=== PATIENT | male | born 1945 | race Caucasian/White ===

== ENCOUNTER 2018-10-15 07:24 | Observation (INO) | payer MEDICARE ==
[~2018-10-15] VITALS: Ht 185.4 cm; Wt 75.0 kg
[~2018-10-15 07:24] MED LIST: AMOXICILLIN500 MG PO; GABAPENTIN300 MG PO; LEVAQUIN750 MG PO; MEDDOSEPAK PO; OXYCODONE HCL10 MG PO; PERCOCET 10/31 COMBO PO; PERCOCET 5/325M1 TAB PO; PREDNISONE10 MG PO; PREDNISONE20 MG PO; PROAIR HFA108 MCG/AC IN; PROVENTIL HFA IN; ROBAXIN-750750 MG PO; VENTOLIN HFA IN; ZITHROMAX Z-PAK1 TAB PO; ZPAK PO
--- NOTE | 2018-10-15 07:24 | NUR ---
PT DIRECTLY TO ROOM 12, PT CONVERSATIONALLY DYSPNEIC.
--- NOTE | 2018-10-15 07:30 | NUR ---
AUDIBLE WHEEZES NOTED. PT REPORTS INCREASING SOB AFTER BEING DIAGNOSED WITH BRONCHITIS 3 DAYS PRIOR. SA02 92% ON ROOM AIR.
--- NOTE | 2018-10-15 07:55 | NUR ---
PT REPORTS FEELING MUCH BETTTER AFTER NEB TX. EXPIRATORY WHEEZES NOTED TO BILATERAL UPPER LOBES.
--- NOTE | 2018-10-15 08:04 | NUR ---
PT MEDICATED PER ORDERED AND RESTING COMFORTABLY IN NAD. RR 22 AT THIS TIME AND SA02 94% ON 2L NC. PT AWARE OF PENDING RESULTS AND WAIT TIME. CALL HICKS WITHIN REACH.
[2018-10-15 08:13] LABS: HEMATOCRIT 43.6 % (39.0-50.0); HEMOGLOBIN 14.6 g/dl (14.0-18.0); IMMATURE GRANULOCYTES 0.3 % (0.0-5.0); MEAN CELL VOLUME 95.6 fL CALC (80.0-100.0); MEAN CORPUSCULAR HGB CONC 33.5 g/L CALC (32.0-36.0); NEUT# 3.91 thou/uL (1.82-7.42); RED BLOOD COUNT 4.56 mill/uL (4.70-6.10); RED CELL DISTRI WIDTH 13.1 % (11.5-15.5)
[2018-10-15 08:17] LABS: ANION GAP 16 (6-22 (CALC)); BUN 13 mg/dL (8-23); BUN/CREATININE RATIO 16 (12-20 (CALC)); CARBON DIOXIDE 24 mmol/l (22-30); CHLORIDE 104 mmol/l (95-108); CREATININE 0.8 mg/dL (0.7-1.3); GFR > 60 ML/MIN (>=60 (CALC)); GFR FOR AFR.AMER. > 60 ML/MIN (>=60 (CALC)); POTASSIUM 4.2 mmol/l (3.5-5.1); SODIUM 140 mmol/l (137-146)
--- NOTE | 2018-10-15 09:00 | NUR ---
PT RESTING IN STRETCHER IN NAD. RR 20 SA02 96% ON 2L NC AT THIS TIME. PT AWARE OF BUSY ED AND WAIT TIME. CALL HICKS WITHIN REACH.
--- NOTE | 2018-10-15 09:45 | NUR ---
IV ANTIBIOTICS INFUSING WITH NO DIFFICUTLY. IV SITE FREE FROM REDNESS AND EDEMA. PT CONCERED THAT WE LOST BOTTLE OF OXYCODONE. PT WAS INFOMRED THAT HE ONLY GAVE STAFF THE BOTTLE OF ANTIBIOTICS. BOTTLE OF OXYCODONE WAS FOUND IN PATIENT'S SHIRT POCKET. PT AWARE OF PENDING ADMISSION.
[2018-10-15] MEDS ORDERED: Levaquin PO (10:09)
--- NOTE | 2018-10-15 10:19 | NUR ---
CALL PLACED TO MS, NURSE WILL CALL BACK FOR REPORT.
--- NOTE | 2018-10-15 10:26 | NUR ---
PT REPORT GIVEN TO MARY CASTELAN. NO ADMISSION ORDERS IN AT THIS TIME. LORENA ROBERTS NOTIFIED.
--- NOTE | 2018-10-15 10:50 | NUR ---
PT AWARE OF PLAN TO TRANSPORT TO FLOOR AND REQUESTED TO AMBULATED TO BATHROOM TO HAVE A BM. PT AMBULATED WITH A STEADY GAIT. UPON GETTING BACK INTO STRETCHER MINIMAL AUDIBLE WHEEZING NOTED, PT REPORTS MINIMAL SOB. AFTER SITTING UPRIGHT WITH [address] PT DENIES ANY SOB, BILATERAL LS MINIMAL EXPIRATORY WHEEZES.
--- NOTE | 2018-10-15 11:05 | NUR ---
Admission Note Report Given to: MARY CASTELAN Transported by: X Wheelchair Stretcher Transported with: X Nurse Transporter X Patent IV X O2 X Accounts Payable Professional PT TO ROOM 278 ON 2 L NC AND TELE MONITOR.
--- NOTE | 2018-10-15 11:05 | NUR ---
PT BELONGINS WELL OXYCODONE AND ABX PILL BOTTLES PLACED IN BELONGINGS BAG AND TAKEN TO ROOM 278 WITH PT. MARY CASTELAN AWARE OF MEDICATIONS IN BELONGING BAG. PT WAS TAKEN TO ROOM 278 IN STABLE CONDITION WITH MILD BILATERAL WHEEZING. RT PAGED FOR NEB TREATMENT AND WILL MEET AT BEDSIDE. CARE RELINQUISHED TO MARY. HERNANDEZ.
--- NOTE | 2018-10-15 11:11 | NUR ---
PT ARRIVED FROM ER VIA WC AT 1110, WITH AUDIBLE WHEEZING ON EXERTION. REQUESTING A BREATHING TREATMENT.
[2018-10-15 11:20] VITALS: BP 124/67
--- NOTE | 2018-10-15 12:20 | NUR ---
ASSESSMENT IS COMPLETED: IV SITE IS FREE FROM REDNESS OR EDEMA. HR IS REG,PULSES ARE STRONG X4, ABD IS SOFT WITH ACTIVE BS. BREATH SOUNDS ARE WHEEZING AND LABORED. BECOMES SOB WITH EXERTION. TELE MONITOR IN PLACE. CONTINUE TO OSBERVE AND MONITOR.
--- NOTE | 2018-10-15 13:30 | NUR ---
PT IS RESTING IN BED WITH EYES CLOSED. IV SITE IS FREE FROM REDNESS OR EDEMA.
--- NOTE | 2018-10-15 16:20 | NUR ---
PT IS RELAXING IN BED WITH NO DISTRESS NOTED. IV SITE IS FREE FROM REDNESS OR EDEMA.
[2018-10-15 17:11] VITALS: BP 115/68
--- NOTE | 2018-10-15 20:14 | NUR ---
Patient resting in bed. No complaints. Patient has some SOB and wheezing noted throughout lung goodwin. Patient on O2@2l/min. Patient tolerating well. No S&S of distress. Will continue to monitor patient progress.
[2018-10-15 20:27] VITALS: BP 124/68
[2018-10-15 23:50] VITALS: BP 117/63
--- NOTE | 2018-10-16 01:50 | NUR ---
Patient resting in bed. @2330 patient given 10mg roxicodone for pain. Patient tolerated well. No S&S of distress. No change in previous assessment. Will continue to monitor patient progress.
[2018-10-16 04:49] VITALS: BP 109/62
[2018-10-16 05:05] LABS: HEMOGLOBIN 12.9 g/dl (14.0-18.0); IMMATURE GRANULOCYTES 0.4 % (0.0-5.0); MEAN CELL VOLUME 94.5 fL CALC (80.0-100.0); MEAN CORPUSCULAR HGB 32.1 pG CALC (26.0-32.0); MEAN CORPUSCULAR HGB CONC 33.9 g/L CALC (32.0-36.0); NEUT# 6.2 thou/uL (1.82-7.42); RED BLOOD COUNT 4.02 mill/uL (4.70-6.10)
[2018-10-16 05:20] LABS: ANION GAP 11 (6-22 (CALC)); BUN 19 mg/dL (8-23); BUN/CREATININE RATIO 28 (12-20 (CALC)); CARBON DIOXIDE 23 mmol/l (22-30); CHLORIDE 111 mmol/l (95-108); CREATININE 0.7 mg/dL (0.7-1.3); GFR > 60 ML/MIN (>=60 (CALC)); GFR FOR AFR.AMER. > 60 ML/MIN (>=60 (CALC)); MAGNESIUM 2.2 mg/dL (1.6-2.3); POTASSIUM 3.9 mmol/l (3.5-5.1); SODIUM 141 mmol/l (137-146)
--- NOTE | 2018-10-16 06:36 | NUR ---
Patient resting in bed. No complaints. No S&S of distress. No change in previous assessment. Will continue to monitor patient progress.
[2018-10-16 07:40] VITALS: BP 114/65
--- NOTE | 2018-10-16 07:40 | NUR ---
ASSESSMENT IS COMPLETED: IV SITE IS FREE FROM REDNESS OR EDEMA. HR IS REG, PULSES ARE STRONG X4, ABD IS SOFT WITH ACTIVE BS. BREATH SOUNDS ARE CLEAR, BILATERALLY. TELE MONITOR IN PLACE. CONTINUE TO OSEBRVE AND MONITOR.
--- NOTE | 2018-10-16 07:45 | NUR ---
Preliminary lab results, gram positive cocci growing in 1 aerobic bottle, called to physician.
[2018-10-16 11:25] VITALS: BP 121/65
[2018-10-16] MEDS ORDERED: IPRATROPIU0.5 MG/3 M NEB (12:16)
[2018-10-16] MEDS ORDERED: PANTOPRAZOLE SO40 M1 PO (12:17)
[2018-10-16] MEDS ORDERED: MEDDOSEPAK PO (12:17)
--- NOTE | 2018-10-16 12:40 | NUR ---
PT IS RELAXING ABLE TO SPEAK TO SOMEONE AT HIS JOB. IV SITE IS FREE FROM REDNESS OR EDEMA.
--- NOTE | 2018-10-16 15:57 | NUR ---
IV SITE DISCONITNUED CATHETER INTACT. DISCHARGE INSTRUCTIONS GIVEN AND VERBALIZED UNDERSTANDING. ALL PAPERS GIVEN. CONITNUE TO OSBERVE AND MONITOR.
== END 2018-10-16 15:55 | disposition home or self-care (01) ==
LOC: ED 07:24 → ED-I 07:43 → ED 07:43 → ED-I 08:52 → ED 09:06 → MS2 09:07
PROVIDERS: Family Medicine; Nurse Practitioner Family; ADMIT Internal Medicine; ATTEND Internal Medicine
DX: J43.9 Emphysema, unspecified (principal); F17.210 Nicotine dependence, cigarettes, uncomplicated; G89.28 Other chronic postprocedural pain; M54.9 Dorsalgia, unspecified; Z99.81 Dependence on supplemental oxygen; Z79.891 Long term (current) use of opiate analgesic
CPT/HCPCS: J1650

== ENCOUNTER 2020-01-30 22:37 | Emergency (ER) | payer MEDICARE ==
[~2020-01-30] VITALS: Ht 185.4 cm; Wt 75.0 kg
[~2020-01-30 22:37] MED LIST changes: +IPRATROPIU0.5 MG/3 M NEB; +Levaquin PO; +PANTOPRAZOLE SO40 M1 PO
[2020-01-31 00:05] LABS: HEMOGLOBIN 10.2 g/dl (14.0-18.0); IMMATURE GRANULOCYTES 0.4 % (0.0-5.0); MEAN CELL VOLUME 95.2 fL CALC (80.0-100.0); MEAN CORPUSCULAR HGB 30.7 pG CALC (26.0-32.0); MEAN CORPUSCULAR HGB CONC 32.3 g/dL CAL (32.0-36.0); NEUT# 7.45 thou/uL (1.82-7.42); RED BLOOD COUNT 3.32 mill/uL (4.70-6.10); RED CELL DISTRI WIDTH 11.7 % (11.5-15.5)
[2020-01-31 00:06] LABS: HEMATOCRIT 31.6 % (39.0-50.0)
[2020-01-31 00:22] LABS: ALBUMIN 3.7 g/dL (3.2-5.0); ALKALINE PHOSPHATASE 65 u/l (38-126); BUN 18 mg/dL (8-23); BUN/CREATININE RATIO 23 (12-20 (CALC)); CHLORIDE 102 mmol/l (95-108); CREATININE 0.8 mg/dL (0.7-1.3); GFR > 60 ML/MIN (>=60 (CALC)); GFR FOR AFR.AMER. > 60 ML/MIN (>=60 (CALC)); POTASSIUM 4.6 mmol/l (3.5-5.1); SGOT/AST 24 u/l (19-48); SODIUM 135 mmol/l (137-146); TOTAL PROTEIN 7.5 g/dL (6.3-8.2)
[2020-01-31 00:29] LABS: URINE BILIRUBIN - DIPSTICK NEGATIVE (NEGATIVE); URINE BLOOD DIPSTICK NEGATIVE (NEGATIVE); URINE COLOR YELLOW; URINE GLUCOSE - DIPSTICK NEGATIVE (NEGATIVE); URINE KETONE TRACE mg/dL (NEGATIVE); URINE LEUK ESTERASE NEGATIVE (NEGATIVE); URINE NITRITE - DIPSTICK NEGATIVE (Negative); URINE PROTEIN - DIPSTICK NEGATIVE (NEG-TRACE)
[2020-01-31 00:30] LABS: MYOGLOBIN 30 ng/mL (0 - 121)
[2020-01-31 00:36] LABS: ANION GAP 8 (6-22 (CALC)); BILIRUBIN, TOTAL 0.5 mg/dL (0.0-1.4); CARBON DIOXIDE 30 mmol/l (22-30)
[2020-01-31] MEDS ORDERED: VENTOLIN HFA IN (01:25)
[2020-01-31 03:00] VITALS: BP 122/65
== END 2020-01-31 03:00 | disposition left against medical advice (07) ==
LOC: ED 22:37
PROVIDERS: Emergency Medicine
DX: J44.1 Chronic obstructive pulmonary disease with (acute) exacerbation (principal); R91.8 Other nonspecific abnormal finding of lung field; F17.210 Nicotine dependence, cigarettes, uncomplicated; Z20.828 Contact with and (suspected) exposure to other viral communicable diseases; Z91.19 Patient's noncompliance with other medical treatment and regimen; R06.02 Shortness of breath
CPT/HCPCS: Q9967

== ENCOUNTER 2020-02-01 14:02 | Emergency (ER) | payer MEDICARE ==
[~2020-02-01] VITALS: Ht 185.4 cm; Wt 84.1 kg
[2020-02-01 16:11] VITALS: BP 112/67
== END 2020-02-01 16:27 | disposition home or self-care (01) ==
LOC: ED 14:02
DX: R91.8 Other nonspecific abnormal finding of lung field (principal); J44.9 Chronic obstructive pulmonary disease, unspecified; F17.210 Nicotine dependence, cigarettes, uncomplicated

== ENCOUNTER 2020-04-04 12:49 | Observation (INO) | payer MEDICARE ==
[~2020-04-04] VITALS: Ht 185.4 cm; Wt 54.0 kg
[2020-04-04] VITALS (9 sets, daily range): BP systolic 94–118; BP diastolic 53–69
--- NOTE | 2020-04-04 13:01 | NUR ---
PATEINT TO ROOM VIA EMS AND PHYSICIAN NOTIFIED OF PATIENT STATUS
[2020-04-04 13:46] LABS: IMMATURE GRANULOCYTES 0.5 % (0.0-5.0); MEAN CORPUSCULAR HGB 26.3 pG CALC (26.0-32.0); MEAN CORPUSCULAR HGB CONC 29.7 g/dL CAL (32.0-36.0); NEUT# 7.12 thou/uL (1.82-7.42); RED BLOOD COUNT 2.59 mill/uL (4.70-6.10); RED CELL DISTRI WIDTH 17.1 % (11.5-15.5)
[2020-04-04 13:53] LABS: INTERNATIONAL NORMALIZED RATIO 1.3 RATIO (0.7-1.3); PROTHROMBIN TIME 12.6 SECONDS (9.0-12.5)
[2020-04-04 13:54] LABS: ALBUMIN 2.6 g/dL (3.2-5.0); ALKALINE PHOSPHATASE 87 u/l (38-126); ANION GAP 9 (6-22 (CALC)); BILIRUBIN, TOTAL 0.5 mg/dL (0.0-1.4); BUN 12 mg/dL (8-23); BUN/CREATININE RATIO 24 (12-20 (CALC)); CARBON DIOXIDE 24 mmol/l (22-30); CHLORIDE 102 mmol/l (95-108); CREATININE 0.5 mg/dL (0.7-1.3); GFR > 60 ML/MIN (>=60 (CALC)); GFR FOR AFR.AMER. > 60 ML/MIN (>=60 (CALC)); SGOT/AST 21 u/l (19-48); SODIUM 132 mmol/l (137-146); TOTAL PROTEIN 6.4 g/dL (6.3-8.2)
[2020-04-04 13:59] LABS: HEMATOCRIT 22.9 % (39.0-50.0); HEMOGLOBIN 6.8 g/dl (14.0-18.0); MEAN CELL VOLUME 88.4 fL CALC (80.0-100.0)
--- NOTE | 2020-04-04 14:00 | NUR ---
PT CALLS NURSE ASKING WHY HE IS HERE HE DOESN'T NEED TO BE HERE AND HE NEEDS HIS OXYCODONE AND HE IS FEELING A BIT SOB. EDUCATED REGARDING MODE OF ARRIVAL AND COMPLAINT, AND O2 APPLIED AT 2L VIA NC.
--- NOTE | 2020-04-04 15:00 | NUR ---
PT AWARE OF PLANNED ADMISSION, AGREEABLE AT THIS TIME AND AWARE OF NEED FOR BLOOD TRANSFUSION, CALL HICKS WITHIN REACH
--- NOTE | 2020-04-04 16:00 | NUR ---
PT RESTING NO NEW COMPLAINTS, CONTINUES TO MUTTER THAT HE DOESN;T WANT TO BE HERE AND THAT NURSES BUTTED INAND RUINED EVERYTHING, ETC, ALSO COMPLAINS OF BEING HUNGRY NOTIFIED.
--- NOTE | 2020-04-04 17:15 | NUR ---
PT RESTING TOLERATED AN ENSURE VANILLA 100% ALSO ASKING ABOUT PAIN MEDICATION MD ORDERED WILL MEDICATE ACCORDINGLY.
--- NOTE | 2020-04-04 18:20 | NUR ---
PT MEDICTAED EARLIER RESTING WITH EYES CLOSED, CALL HICKS WITHIN REACH.-
--- NOTE | 2020-04-04 19:32 | NUR ---
PATIENT EDUCATED ON TRANSFUSION REACTION SYSMPTOMS, EDUCATED TO NOTIFY NURSE OF ANY SYMPTOMS OR QUESTIONS.
--- NOTE | 2020-04-04 19:35 | NUR ---
BLOOD TRANSFUSION UNIT 1 OF 2 STARTED, PATIENT AWAKE AND ALERT, NO C/O PAIN OR DISCOMFORT, NO S/S OF DISTRESS NOTED, RESPIRATIONS EVEN AND UNLABORED, AWAITING INPATIENT BED ASSIGNMENT.
--- NOTE | 2020-04-04 20:34 | NUR ---
REPORT CALLED TO TOREY ON MED SURG
--- NOTE | 2020-04-04 20:46 | NUR ---
RESTING QUETLY WITH EYES CLOSED, NO C/O OF COMPLICATIONS WITH BLOOD TRANSFUSION.
--- NOTE | 2020-04-04 21:00 | NUR ---
RESTING QUIETLY, AWAITING TRANSFER TO INPATIENT TREATMENT ROOM.
--- NOTE | 2020-04-04 21:10 | NUR ---
PT ARRIVED TO [facility] [place] [facility] UNIT. PT APPEARS IN STABLE CONDITION AND SELF AMBULATED W/STANDBY ASSISTANCE FROM THE STRETCHER TO THE BED. V/S OBTAINED, ATTEMPTS TO ASSESS AND PLACE WHARF HAND ON PT ARE MADE AT THIS TIME. PT STATES, "I SHOULD NOT BE HERE, THIS IS ALL THAT NURSES FAULT, I WAS JUST FINE." I ASKED PT'S PERMISSION TO PLACE HEART MONITOR ON PER PHSYCIANS ORDERS, HE REPLIES, "WHY DO I NEED THAT, REDICULOUS." I ASKED PT IF HE DID NOT WANT ME TO PLACE MONITOR, HE REPLIED, "I DON'T CARE." WHARF HAND PLACED WITHOUT ANY ISSUE. REDNESS OBSERVED TO PT'S COCCYX, SHORTS KEPT ON PER PT REQUEST, URINAL IS PLACED AT BEDSIDE.
--- NOTE | 2020-04-04 22:36 | NUR ---
1ST UNIT OF PRBC TRANSFUSION COMPLETED AT THIS TIME. V/S ASSESSED, NO S/O DISTRESS OR NEGATIVE REACTION. PT TURNED IV PUMP OFF WHILE I WAS OUT OF THE ROOM AFTER THE BLOOD TRANSFUSION HAD COMPLETED AND NS WAS RUNNING. I EXPLAINED TO THE PT THAT HE HAD ANOTHER UNIT TO BE TRANSFUSED AND WAS THIS OKAY, HE VERBALIZED "YES", CONSENT HAS PREVIOUSLY BEEN SIGNED AND IS IN THE CHART FOR 2 UN OF PRBC. I EXPLAINED TO HIM THAT I NEED THE IVF TO RUN WHILE I GO OBTAIN THE 2ND UNIT. PT DID NOT RESPOND. IVF LEFT RUNNING, SITE APPEARS HEALTHY. V/S ARE STABLE.
--- NOTE | 2020-04-04 23:05 | NUR ---
2ND UNIT OF PRBC STARTED AT THIS TIME. PT V/S ARE STABLE. WILL STAY WITH PT AND REASSESS FOR THE FIRST 15MINUTES. PT EYES ARE CLOSED AND LIGHTS TURNED DOWN TO LOW FOR PT COMFORT ONCE TRANSFUSION STARTED.
[2020-04-05 00:02] VITALS: BP 100/58
--- NOTE | 2020-04-05 00:03 | NUR ---
V/S ASSESSED, PT TOLERATING PRBC TRANSFUSION WELL AT THIS TIME. EYES REMAIN CLOSED, PT LIFTED HIS ARM, DENIES NEEDS. CALL LIGHT AT SIDE AND PT ENCOURAGED TO CALL NEEDS ARISE.
[2020-04-05 01:00] VITALS: BP 99/45
--- NOTE | 2020-04-05 01:01 | NUR ---
BLOOD TRANSFUSION COMPLETED 2ND UNIT AT THIS TIME. PT APPEARS TO HAVE TOLERATED TRANSFUSION WELL. NO S/O DISTRESS. PT EYES CLOSED, BUT RESPONDING TO VERBAL QUES. V/S ASSESSED AT THIS TIME. CALL LIGHT AT SIDE AND PT ENCOURAGED TO CALL NEEDS ARISE.
--- NOTE | 2020-04-05 04:18 | NUR ---
IVF REPLENISHED AT THIS TIME. V/S ASSESSED. PT DENIES ANY OTHER NEEDS. REPORTS HAVING BEEN AMBULATING TO RESTROOM TO URINATE. PT HAS BEEN INSTRUCTED TO CALL FOR STANDBY ASSISTANCE.
[2020-04-05 04:20] VITALS: BP 100/56
[2020-04-05 05:32] LABS: IMMATURE GRANULOCYTES 0.5 % (0.0-5.0); MEAN CORPUSCULAR HGB 27.1 pG CALC (26.0-32.0); MEAN CORPUSCULAR HGB CONC 30.8 g/dL CAL (32.0-36.0); NEUT# 7.4 thou/uL (1.82-7.42); RED BLOOD COUNT 3.43 mill/uL (4.70-6.10)
[2020-04-05 05:38] LABS: HEMATOCRIT 30.2 % (39.0-50.0); HEMOGLOBIN 9.3 g/dl (14.0-18.0)
[2020-04-05 05:52] LABS: ALBUMIN 2.2 g/dL (3.2-5.0); ALKALINE PHOSPHATASE 86 u/l (38-126); ANION GAP 8 (6-22 (CALC)); BUN 11 mg/dL (8-23); BUN/CREATININE RATIO 26 (12-20 (CALC)); CARBON DIOXIDE 26 mmol/l (22-30); CHLORIDE 104 mmol/l (95-108); CREATININE 0.4 mg/dL (0.7-1.3); GFR > 60 ML/MIN (>=60 (CALC)); GFR FOR AFR.AMER. > 60 ML/MIN (>=60 (CALC)); MAGNESIUM 2.1 mg/dL (1.6-2.3); POTASSIUM 4.1 mmol/l (3.5-5.1); SGOT/AST 23 u/l (19-48); SODIUM 133 mmol/l (137-146); TOTAL PROTEIN 5.5 g/dL (6.3-8.2)
--- NOTE | 2020-04-05 07:29 | NUR ---
PT note Patient is screened for PT interventionand may benefit from funcitonal assessment by PT as well as OT if medical agrees
[2020-04-05 08:38] VITALS: BP 95/49
--- NOTE | 2020-04-05 08:38 | NUR ---
PT LAYING IN BED. A&O X3. NO DISTRESS NOTED. PT STATES THAT HE WISHES TO GO HOME, THAT HE DOES NOT KNOW WHY HE IS HERE OR WHY THEY BROUGHT HIM HERE. WHEN ASKED ABOUT HOME HEALTH AGENCY AND WHY HE WAS REC HOME HEALTH HE STATED "I DON'T KNOW". PT MAKING MINIMAL EYE CONTACT BUT PLESANTLY COOPERATIVE. ASSESSMENT CMPLETED. DISCUSSED POC. CALL LIGHT WITHIN REACH. CONTINUE TO MONITOR.
[2020-04-05 11:24] VITALS: BP 103/60
--- NOTE | 2020-04-05 11:50 | NUR ---
Discharge instructions given. Patient verbalizes understanding of same. Discharged in stable condition via wheelchair to home with Home Health, pt instructed to call home health agency when he gets home, pt did not recall the exact name of agency and was not willing to wait until orders were sent or right agency was found . Pt eager to get out and go home, neda Rouse called. Pt instructed to return to the hospital if symptoms worsen or new onset of sob, CP occur. Pt accompanied by Glenda PATEL. All belongings sent with pt.
== END 2020-04-05 11:50 | disposition home health service (06) ==
LOC: ED 12:49 → ED-I 15:02 → ED 15:17 → MS2 15:18
PROVIDERS: Nurse Practitioner; Student in an Organized Health Care Education/Training Program; ADMIT Internal Medicine; ATTEND Internal Medicine
PROC: 30233N1 Transfusion of Nonautologous Red Blood Cells into Peripheral Vein, Percutaneous Approach (ICD-10-PCS; principal; 2020-04-04)
PROC: 30233N1 Transfusion of Nonautologous Red Blood Cells into Peripheral Vein, Percutaneous Approach (ICD-10-PCS; 2020-04-04)
DX: D64.9 Anemia, unspecified (principal); C34.12 Malignant neoplasm of upper lobe, left bronchus or lung; J44.9 Chronic obstructive pulmonary disease, unspecified; F17.210 Nicotine dependence, cigarettes, uncomplicated; R76.8 Other specified abnormal immunological findings in serum; Z20.828 Contact with and (suspected) exposure to other viral communicable diseases
CPT/HCPCS: P9016

== ENCOUNTER 2020-05-07 09:07 | Emergency (ER) | payer MEDICARE ==
[~2020-05-07] VITALS: Ht 185.4 cm; Wt 52.6 kg
[2020-05-07 09:49] LABS: HEMATOCRIT 28.1 % (39.0-50.0); HEMOGLOBIN 8.6 g/dl (14.0-18.0); IMMATURE GRANULOCYTES 0.7 % (0.0-5.0); MEAN CELL VOLUME 89.5 fL CALC (80.0-100.0); MEAN CORPUSCULAR HGB 27.4 pG CALC (26.0-32.0); MEAN CORPUSCULAR HGB CONC 30.6 g/dL CAL (32.0-36.0); NEUT# 3.33 thou/uL (1.82-7.42); RED BLOOD COUNT 3.14 mill/uL (4.70-6.10); RED CELL DISTRI WIDTH 19.1 % (11.5-15.5)
[2020-05-07 10:02] LABS: ALKALINE PHOSPHATASE 80 u/l (38-126); BILIRUBIN, TOTAL 0.6 mg/dL (0.0-1.4); BUN 11 mg/dL (8-23); BUN/CREATININE RATIO 23 (12-20 (CALC)); CARBON DIOXIDE 28 mmol/l (22-30); CHLORIDE 107 mmol/l (95-108); CREATININE 0.5 mg/dL (0.7-1.3); GFR > 60 ML/MIN (>=60 (CALC)); GFR FOR AFR.AMER. > 60 ML/MIN (>=60 (CALC)); POTASSIUM 3.7 mmol/l (3.5-5.1); SGOT/AST 16 u/l (19-48); TOTAL PROTEIN 6.3 g/dL (6.3-8.2)
[2020-05-07 10:03] LABS: ANION GAP 9 (6-22 (CALC)); SODIUM 140 mmol/l (137-146)
[2020-05-07] MEDS ORDERED: PREDNISONE50 MG PO (11:19)
[2020-05-07] MEDS ORDERED: LEVAQUIN750 M1 PO (11:19)
[2020-05-07] MEDS ORDERED: PROAIR HFA108 MCG/AC PO (11:19)
[2020-05-07 12:18] VITALS: BP 137/68
== END 2020-05-07 12:29 | disposition left against medical advice (07) ==
LOC: ED 09:07
PROVIDERS: Family Medicine
DX: J44.1 Chronic obstructive pulmonary disease with (acute) exacerbation (principal); C34.92 Malignant neoplasm of unspecified part of left bronchus or lung; F17.200 Nicotine dependence, unspecified, uncomplicated; Z79.899 Other long term (current) drug therapy; Z91.19 Patient's noncompliance with other medical treatment and regimen; Z20.828 Contact with and (suspected) exposure to other viral communicable diseases

== ENCOUNTER 2020-06-15 15:08 | Emergency (ER) | payer MEDICARE ==
[~2020-06-15] VITALS: Ht 185.4 cm; Wt 51.8 kg
[~2020-06-15 15:08] MED LIST changes: +LEVAQUIN750 M1 PO; +PREDNISONE50 MG PO; +PROAIR HFA108 MCG/AC PO
[2020-06-15 17:54] VITALS: BP 115/66
== END 2020-06-15 18:05 | disposition home or self-care (01) ==
LOC: ED 15:08
DX: M54.42 Lumbago with sciatica, left side (principal); J44.9 Chronic obstructive pulmonary disease, unspecified; I71.4 Abdominal aortic aneurysm, without rupture; F17.210 Nicotine dependence, cigarettes, uncomplicated; Z85.118 Personal history of other malignant neoplasm of bronchus and lung

== ENCOUNTER 2020-06-27 10:17 | Inpatient (IN) | payer MEDICARE ==
[2020-06-27] VITALS (7 sets, daily range): BP systolic 80–104; BP diastolic 43–58
[~2020-06-27] VITALS: Ht 185.4 cm; Wt 52.0 kg
--- NOTE | 2020-06-27 10:18 | NUR ---
PT TO ROOM VIA EMS STRETCHER FOR TRAIGE.
--- NOTE | 2020-06-27 10:51 | NUR ---
RPaty AT BEDSIDE FOR VAPO THERM PLACEMENT ON PT LAB EM ROUTE FOR SECOND BC
[2020-06-27 10:55] LABS: HEMOGLOBIN 7.8 g/dl (14.0-18.0); NEUT# 18.11 thou/uL (1.82-7.42); RED BLOOD COUNT 2.89 mill/uL (4.70-6.10); RED CELL DISTRI WIDTH 18.1 % (11.5-15.5)
[2020-06-27 11:18] LABS: ALKALINE PHOSPHATASE 80 u/l (38-126); ANION GAP 10 (6-22 (CALC)); BUN 19 mg/dL (8-23); BUN/CREATININE RATIO 34 (12-20 (CALC)); CARBON DIOXIDE 27 mmol/l (22-30); CHLORIDE 103 mmol/l (95-108); CREATININE 0.6 mg/dL (0.7-1.3); GFR > 60 ML/MIN (>=60 (CALC)); GFR FOR AFR.AMER. > 60 ML/MIN (>=60 (CALC)); POTASSIUM 3.3 mmol/l (3.5-5.1); SGOT/AST 19 u/l (19-48); SODIUM 137 mmol/l (137-146)
--- NOTE | 2020-06-27 11:18 | NUR ---
MEDICATED ORDERED FOR PAIN AND ABT STARTED SINCE BC COMPLETE, VISITOR AT BEDSIDE WILL CONTINNUE TO MONITOR.
[2020-06-27 11:19] LABS: ACT PARTIAL THROMBO TIME 26.7 SECONDS (20.0-32.5); INTERNATIONAL NORMALIZED RATIO 1.2 RATIO (0.7-1.3)
[2020-06-27 11:21] LABS: ALBUMIN 2.2 g/dL (3.2-5.0); BILIRUBIN, TOTAL 1.3 mg/dL (0.0-1.4); TOTAL PROTEIN 4.7 g/dL (6.3-8.2)
--- NOTE | 2020-06-27 12:15 | NUR ---
PT TOLERATING VAPO THERM WITH OUT INCIDENT, CALL KURT MORSE REACH AWARE OF PLANNED CT.
--- NOTE | 2020-06-27 13:10 | NUR ---
PT AWARE OF PENDDING CT SCAN, OFFERS NO MEW COMPLAINTS.
--- NOTE | 2020-06-27 14:06 | NUR ---
PT IN RADIOLOGY WITH NURSE APARICIO
--- NOTE | 2020-06-27 14:50 | NUR ---
sbar printed to floor
--- NOTE | 2020-06-27 15:43 | NUR ---
PT AWARE OF PLANNED ADMISSION, AND NEED FOOR URINE
--- NOTE | 2020-06-27 16:15 | NUR ---
S: AMIE CROWELL is a 75 M who presents with COPD exacerbation/pneumonia. He has a history of arthritis, COPD, chicken pox/herpes, lung disease, bronchitis. All medications in patient's chart were reviewed. O: VS: BP 88/52 mmHg, P 84 bpm, RR 26 breaths/min ,T 97.6 F W 52 kg, HT 73 in, Scr= 0.6 mg/dL, CrCl= 46.9 ml/min A: Blood cultures are pending. P: Patient is on Zosyn 3.375 g IV Q6H. Vancomycin ordered for pharmacy to dose. Start Vancomycin 750 mg IV Q24H on 06/28/20 @ 0900. Vancomycin trough is drawn before the 4th dose on 06/30/20 @ 0830. Vancomycin goal trough is between 15-20 mcg/ml. Pharmacy will follow and or advise on antibiotics use as needed.
--- NOTE | 2020-06-27 16:40 | NUR ---
REPORT CALLED TO GAGE PATEL ON ICU
--- NOTE | 2020-06-27 16:50 | NUR ---
PT TO ICU BED 6 VIA STRETCHER. PT TRANSFERRED TO BED A MAX ASSIST. ADMISSION ASSESSMENT COMPLETED AT THIS TIME. HISTORY LIMITED DUE TO PATIENT NOT WANTING TO BE BOTHERED AT THIS TIME. Fausto DANIEL APRN AT BEDSIDE TRIED WELL FOR HISTORY PT DOES NOT WANT TO BE BOTHERED. RT AT BEDSIDE TO PLACE PT ON VAPOTHERM. PT ON 30L AT 80 FIO2. PT ORIENTED TO ROOM, UNIT, AND CALL [facility]. PT VERBALIZED UNDERSTANDING. CALL LIGHT IN REACH. WILL CONTINYUE TO [facility].
--- NOTE | 2020-06-27 16:50 | NUR ---
PT TRASNPORTED TO ICU VIA STRETCHER ALL BELONGINGS SENT WITH PATIENT, RECIEVING NURSE AT BEDSIDE ON ARRIVAL
--- NOTE | 2020-06-27 18:21 | NUR ---
PT RESTING IN BED AWAKE. WATCHING TV. PT HAD REQUESTED PAIN MEDICATION. MEDICATION PROVIDED PER AUG. CALL LIGHT IN REACH. [place] [facility]
--- NOTE | 2020-06-27 20:00 | NUR ---
awakens easily. dismissive to this rewriter. pt is VERY thin & emaciated. has generalized weakness. pt is VERY ill appearing. o2 cont 30 l/m 80% per vapotherm. coarse breath sounds bilat. card placer shows sinus rhythm hr 95. #20 lac ns infusing @ 75cchr. no po intake & hnv @ present. fall precautions cont.
--- NOTE | 2020-06-27 20:15 | NUR ---
reggie kline(friend) called this headline writer. permission rec'd from pt to give code number & any info to him. spoke to reggie @ length about pts condition. all questions answered.
[2020-06-27 21:15] LABS: URINE BLOOD DIPSTICK NEGATIVE (NEGATIVE); URINE CLARITY CLEAR; URINE COLOR YELLOW; URINE GLUCOSE - DIPSTICK NEGATIVE (NEGATIVE); URINE KETONE NEGATIVE (NEGATIVE); URINE LEUK ESTERASE NEGATIVE (Negative); URINE NITRITE - DIPSTICK NEGATIVE (Negative); URINE PROTEIN - DIPSTICK NEGATIVE (NEG-TRACE)
[2020-06-27 21:25] LABS: URINE BILIRUBIN - DIPSTICK NEGATIVE (NEGATIVE)
--- NOTE | 2020-06-27 22:00 | NUR ---
alfonzo way(daughter) called this content writer. permission rec'd from pt to give code number to her. spoke @ length about pts condition. daughter requested social service consult for assistance @ home after discharge.
[2020-06-28] VITALS (19 sets, daily range): BP systolic 76–158; BP diastolic 52–92
--- NOTE | 2020-06-28 00:01 | NUR ---
o2 has been off frequently & has been replaced. pulse ox drops to 80% quickly. pulse ox increases to 94-96%.
--- NOTE | 2020-06-28 02:00 | NUR ---
resting quietly. o2 cont per vapotherm. library monitor shows sinus rhythm pacs.
--- NOTE | 2020-06-28 04:25 | NUR ---
pulse ox 73%. o2 found on floor. pt yelling out "i'm dying." o2 replaced then increased to 95%. instructed pt about importance of o2 & consequences of not wearing it. pt verbalized understanding. medicated with dilaudid as requested. requested florian tx. rt notified. lab here. blood drawn.
[2020-06-28 05:03] LABS: HEMATOCRIT 22.9 % (39.0-50.0); MEAN CELL VOLUME 90.5 fL CALC (80.0-100.0); MEAN CORPUSCULAR HGB 27.7 pG CALC (26.0-32.0); MEAN CORPUSCULAR HGB CONC 30.6 g/dL CAL (32.0-36.0); RED BLOOD COUNT 2.53 mill/uL (4.70-6.10); RED CELL DISTRI WIDTH 18.1 % (11.5-15.5)
[2020-06-28 05:17] LABS: ANION GAP 8 (6-22 (CALC)); BUN 18 mg/dL (8-23); BUN/CREATININE RATIO 35 (12-20 (CALC)); CALCULATED LDLCHOLESTEROL 48 mg/dL (62-129 (CALC)); CARBON DIOXIDE 24 mmol/l (22-30); CHLORIDE 110 mmol/l (95-108); CREATININE 0.5 mg/dL (0.7-1.3); GFR > 60 ML/MIN (>=60 (CALC)); GFR FOR AFR.AMER. > 60 ML/MIN (>=60 (CALC)); HDL CHOLESTEROL 15 mg/dL (>=40); MAGNESIUM 2.2 mg/dL (1.6-2.3); POTASSIUM 3.1 mmol/l (3.5-5.1); SODIUM 139 mmol/l (137-146); TOTAL TRIGLYCERIDES 100 mg/dl (30-149); VLDL CHOLESTROL 20 mg/dl (0-38 (CALC))
[2020-06-28 05:20] LABS: CHOLESTEROL HDL RATIO 5.5 (<4.4 (CALC)); TOTAL CHOLESTEROL 83 mg/dl (0-199)
--- NOTE | 2020-06-28 05:48 | NUR ---
eyes closed. nad. o2 cont. offal roller shows sinus rhythm pacs hr 70
--- NOTE | 2020-06-28 06:45 | NUR ---
REPORT RECEIVED FROM THERESE HERNANDEZ. CARE ASSUMED.
--- NOTE | 2020-06-28 07:00 | NUR ---
PT RESTING IN BED WITH EYES CLOSED. PT IS ALERT AND ORIENTED X3. SHIFT ASSESSMENT COMPLETED AT THIS TIME. IV PATENT X1. CALL LIGHT IN REACH. WILL CONTINUE TO MONITOR.
--- NOTE | 2020-06-28 07:38 | NUR ---
Patient is screened for PT intervention and he may benefit from consult if medical agrees
--- NOTE | 2020-06-28 08:15 | NUR ---
DR MARINELLI AT BEDSIDE AT THIS TIME.
--- NOTE | 2020-06-28 08:45 | NUR ---
T SIGNED DNR FORM.
--- NOTE | 2020-06-28 08:50 | NUR ---
LAB AT BEDSIDE TO TYPE AND SCREEN.
--- NOTE | 2020-06-28 09:04 | NUR ---
TRIED TO PLACE PULMONOLOGY CONSULTS. TRSQD STATES NO AVAILABLE TIME SLOTS FOR DR GLYNN.
--- NOTE | 2020-06-28 09:10 | NUR ---
NEW #22G STARTED TO RAC ON 2ND ATTEMPT BY THIS WRITTER, PT TOLERATED WELL.
--- NOTE | 2020-06-28 09:33 | NUR ---
RT AT BEDSIDE FOR NEB TREATMENT. RT INCREASED VAPOTHERM TO 85% AT THIS TIME DUE TO DECREASED O2 SATS. CONSENT FOR BLOOD OBTAINED AT THIS TIME. CALL LIGHT IN REACH. WILL CONTINUE TO [facility]
--- NOTE | 2020-06-28 09:33 | NUR ---
FIO2 INCREASED TO 85% ON VAPOTHERM
--- NOTE | 2020-06-28 10:02 | NUR ---
1 UNIT PRBCS STARTED AT THIS TIME
--- NOTE | 2020-06-28 10:18 | NUR ---
PT RESTING IN BED WITH EYES CLOSED. RESP ARE EVEN AND UNLABORED. NO DISTRESS NOTED. CALL LIGHT IN REACH. WILL CONTINUE TO MONTIOR.
--- NOTE | 2020-06-28 11:10 | NUR ---
consult completed with dr harp via [facility]
--- NOTE | 2020-06-28 12:00 | NUR ---
PT RESTING IN BED WITH EYES CLOSED. RESP ARE EVEN AND UNLABORED. NO DISTRESS NOTED. CALL LIGHT IN JACQUELINE. WILL CONTINUE TO MONTIOR
--- NOTE | 2020-06-28 13:02 | NUR ---
PRBCS FINISHED AT THIS TIME.
--- NOTE | 2020-06-28 13:49 | NUR ---
PT MOVED TO AIR MATTRESS BED. PT TOLERATED TRANSFER WELL. RT NOW AT BEDSIDE FOR NEB TREATMENT. CALL LIGHT IN REACH. WILL CONTINUE TO MONITOR.
--- NOTE | 2020-06-28 15:39 | NUR ---
PT RESTING IN BED WITH EYES CLOSED. PT VOICES NO COMPLAINTS AT THIS TIME. RESP ARE EVEN AND UNLABORED ONB VAPOTHERM. [facility]. WILL CONTINIUE TO [facility]
[2020-06-28 16:47] LABS: HEMATOCRIT 25.5 % (39.0-50.0); HEMOGLOBIN 8.1 g/dl (14.0-18.0)
--- NOTE | 2020-06-28 18:12 | NUR ---
PT RESTING IN BED WITH EYES CLOSED. PT REFUSED TO EAT DINNER. RESP ARE EVEN AND UNLABORED AT THIS TIME. PT DOES RANDOMLY PULL OFF O2. CALL LIGHT IN REACH. WILL CONTINUE TO MONITOR.
--- NOTE | 2020-06-28 19:30 | NUR ---
drowsy when awakened. appears weaker tonight. o2 cont per 30 l/m 85% per vapotherm. nad. adjunct physics instructor shows sinus rhythm hr 82. #20 lac saline lock. #22 rac ns infusing @ 75cchr. refused po fluids. hnv @ present. fall precautions cont.
--- NOTE | 2020-06-28 21:45 | NUR ---
threat monitoring analyst shows svt hr 160-180. bp 159/92. rt here. ekg obtained. dr alexandra notified. orders rec'd.
--- NOTE | 2020-06-28 23:15 | NUR ---
heel builder machine shows svt hr 160-180. bp 124/82. dr alexandra notified. orders rec'd.
[2020-06-29] VITALS (10 sets, daily range): BP systolic 82–138; BP diastolic 46–74
--- NOTE | 2020-06-29 00:01 | NUR ---
dr alexandra called this typewriter operator automatic. updated on pts condition. orders rec'd.
--- NOTE | 2020-06-29 01:00 | NUR ---
monitor tech shows svt hr 165. bp 105/71. amiodarone given as ordered.
--- NOTE | 2020-06-29 02:00 | NUR ---
eyes closed. nad. patient monitor shows a fib pvcs hr 150. o2 cont.
--- NOTE | 2020-06-29 04:00 | NUR ---
resting quietly. nad. cardic monitor shows a fib pvcs hr 150.
--- NOTE | 2020-06-29 05:30 | NUR ---
LAB HERE. BLOOD DRAWN.
[2020-06-29 06:20] LABS: HEMOGLOBIN 9.7 g/dl (14.0-18.0); IMMATURE GRANULOCYTES 0.5 % (0.0-5.0); MEAN CELL VOLUME 90.2 fL CALC (80.0-100.0); MEAN CORPUSCULAR HGB 27.1 pG CALC (26.0-32.0); NEUT# 16.57 thou/uL (1.82-7.42); RED BLOOD COUNT 3.58 mill/uL (4.70-6.10); RED CELL DISTRI WIDTH 18.5 % (11.5-15.5)
[2020-06-29 06:24] LABS: ALBUMIN 2.2 g/dL (3.2-5.0); ALKALINE PHOSPHATASE 82 u/l (38-126); BILIRUBIN, TOTAL 1.7 mg/dL (0.0-1.4); BUN 14 mg/dL (8-23); BUN/CREATININE RATIO 27 (12-20 (CALC)); CARBON DIOXIDE 22 mmol/l (22-30); CHLORIDE 113 mmol/l (95-108); CREATININE 0.5 mg/dL (0.7-1.3); GFR > 60 ML/MIN (>=60 (CALC)); GFR FOR AFR.AMER. > 60 ML/MIN (>=60 (CALC)); SGOT/AST 15 u/l (19-48); SODIUM 144 mmol/l (137-146); TOTAL PROTEIN 4.8 g/dL (6.3-8.2)
[2020-06-29 06:26] LABS: HEMATOCRIT 32.3 % (39.0-50.0)
[2020-06-29 06:30] LABS: ANION GAP 13 (6-22 (CALC)); POTASSIUM 3.9 mmol/l (3.5-5.1)
--- NOTE | 2020-06-29 06:40 | NUR ---
dr alexandra notified of a fib 140-160. bp 123/74
--- NOTE | 2020-06-29 08:24 | NUR ---
PT ALERT/ORIENTED X3, LAYING ON RIGHT SIDE, REQUESTING PAIN MEDICATION FOR HIS SCIATIC NERVE COMPLAINT, DENIES ANY CHEST PAIN, DENIES ANY FEELING OF RAPID HR. STATES AT THIS TIME DOES NOT WANT ANYTHING TO EAT.
--- NOTE | 2020-06-29 14:14 | NUR ---
PTS HEART RATE IS DOWN IN THE 90'S.
--- NOTE | 2020-06-29 15:39 | NUR ---
heart rate remains in the 90's, pt sleeping at this time
--- NOTE | 2020-06-29 15:46 | NUR ---
PTS FRIEND ELEANOR BRUNO, CAME TO HOSPITAL TO COME UP TO SEE PT. SPOKE WITH SENIOR WEB APPLICATIONS DEVELOPER KAMARI ABOUT WHETHER ADMINISTRATION HAD APPROVED. SHE DID NOT THINK SO, AND IS TRYING TO CONTACT ADM AT THIS TIME.
--- NOTE | 2020-06-29 17:20 | NUR ---
FRIEND ELEANOR BRUNO HERE TO SEE PT. ELEANOR SIGNED WAIVER AND WAS PLACED ON CHART. PT IS ALERT/AND ORIENTED TALKING TO FRIEND, LAUGHING WITH HIM.
--- NOTE | 2020-06-29 18:12 | NUR ---
AFTER CHANGING PTS BED AND GIVING HIM A BATH, PT KEPT SAYING I JUST WANT TO , JUST LET ME , I AM READY. TRIED COMFORT MEASURES. WARM BLANKETS GIVEN. PTS VITAL SIGNS STABLE.
--- NOTE | 2020-06-29 18:59 | NUR ---
REPORT FROM JOSE PATEL. ASSUMED PT CARE.
--- NOTE | 2020-06-29 19:36 | NUR ---
PT SATS DOWN TO 79%, PT REMOVED VAPOTHERM ATTEMPTING TO GET OOB TO VOID. VAPOTHERM REAPPLIED AND ASSISTED PT WITH URINAL. REPOSITIONED IN BED. SATS SLOWING RECOVERED TO 92%. VAPOTHERM 40L @ 100%. PAIN MEDICATION EFFECTIVE. RESPIRATIONS LABORED AND SHALLOW. ENCOURAGED DEEP BREATHING AND RELAXATION. MONITORS IN PLACE. IVF INFUSING WITHOUT DIFFICULTY. CALL LIGHT WITHIN REACH, BED ALARM FOR SAFETY.
--- NOTE | 2020-06-29 21:09 | NUR ---
PT MEDICATED ORDERED. EDUCATION PROVIDED ON LOVENOX INJECTION. NO APPARENT DISTRESS AT THIS TIME. PT REMAINS ON VAPOTHERM 40L @ 100% FIO2. SATS 92-95%. DENIES ANY CURRENT WANTS OR NEEDS. URINAL EMPTIED OF 100ML CLEAR YELLOW OUTPUT. MONITORS IN PLACE. CALL LIGHT WITHIN REACH. WILL CONTINUE TO MONITOR.
--- NOTE | 2020-06-29 22:36 | NUR ---
PT C/O PAIN IN BACK. REPOSITIONED SELF IN BED WITHOUT EFFECT. MEDICATED WITH PRN IV MORPHINE AT THIS TIME. URINAL EMPTIED OF 100ML CLEAR YELLOW OUTPUT. NO APPARENT RESPIRATORY DISTRESS NOTED. PT DENIES ANY OTHER CURRENT WANTS OR NEEDS. CALL LIGHT WITHIN REACH. WILL CONTINUE TO MONITOR.
[2020-06-30] VITALS (12 sets, daily range): BP systolic 97–121; BP diastolic 45–69
--- NOTE | 2020-06-30 00:34 | NUR ---
RN AT BEDSIDE TO ADMINISTER IV DIGOXIN ORDERED. PT RESTING IN BED WITH EYES CLOSED. NO APPARENT DISTRESS NOTED. REMAINS ON VAPOTHERM 40L @ 100%FIO2. CALL LIGHT WITHIN REACH. WILL CONTINUE TO MONITOR.
--- NOTE | 2020-06-30 02:50 | NUR ---
PT REPOSITIONING SELF IN BED. NO APPARENT DISTRESS NOTED. PT MOANING, BUT DENIES ANY PAIN AT THIS TIME, JUST SOME SOB WITH MOVING. VAPOTHERM IN PLACE 40L @ [address] URINAL EMPTIED OF 100ML YELLOW OUTPUT. VSS. CALL LIGHT WITHIN REACH. BED ALARM ON FOR SAFETY. WILL CONTINUE TO MONITOR.
--- NOTE | 2020-06-30 04:12 | NUR ---
PT AWAKE SITTING UP IN BED. NO APPARENT DISTRESS NOTED. PT USED URINAL WITHOUT DIFFICULTY. EMPTIED 200ML CLEAR DARK YELLOW OUTPUT. PT DENIES ANY CURRENT WANTS OR NEEDS. MONITORS AND VAPOTHERM IN PLACE. VSS. CALL LIGHT WITHIN REACH. WILL CONTINUE TO MONITOR.
--- NOTE | 2020-06-30 06:06 | NUR ---
RN ON SHIFT AT BEDSIDE TO ADMINISTER IV DIGOXIN. NO APPARENT DISTRESS NOTED. VAPOTHERM AND MONITORS IN PLACE. NO CURRENT WANTS OR NEEDS. IV SITE APPEARS HEALTHY. CALL LIGHT WITHIN REACH. WILL CONTINUE TO MONITOR.
--- NOTE | 2020-06-30 06:44 | NUR ---
PT REPORT FROM LEAFLET DISTRIBUTOR, PT RESTING AT THIS TIME, VITAL SIGNS STABLE
--- NOTE | 2020-06-30 10:55 | NUR ---
PRELIM BLOOD CX RESULTS SHOW GRAM POSITIVE COCCI IN 1 OF 4 BOTTLES. RESULTS CALLED TO [facility] THIS AM @ 0800. PT IS RECEIVING VANCOMYCIN, WILL F/U WITH FINAL RESULTS.
--- NOTE | 2020-06-30 11:20 | NUR ---
SPOKE WITH CASE MANAGEMENT ABOUT THE HOSPICE CONSULT ORDER PLACED, AND SHE SSTATES SHE WILL WAIT TO SPEAK WITH HOSPICE UNTIL THE DAUGHTER COMES POSSIBLY TOMORROW. PT RESTING QUIETLY AT THIS TIME, NEBULIZER BEGUN PER PT REQUEST BY RESP. PERALTA 93%, JR 92. DOCTOR SANDOVAL SPOKE TO PT ABOUT HOSPICE CARE, AND PT VOICES UNDERSTANDING.
--- NOTE | 2020-06-30 14:25 | NUR ---
PT RESTING QUIETLY, VITL SIGNS STABLE., PT DENIES ANY COMPLAINT AT THIS TIME
--- NOTE | 2020-06-30 14:29 | NUR ---
S: AMIE CROWELL is a 75 M who presents with pneumonia and gram positive cocci in 1 of 4 blood samples. All medications in patient's chart were reviewed. O: W 52 kg, Scr 1 G/DL, CrCl 46.9 ml/min A: Blood culture is pending. Preliminary results show gram positive cocci in one of four bottles. P: Patient is on Zosyn 4.5g IV q6h. Vancomycin ordered for pharmacy to dose. Change to Vancomycin 600mg IV Q12H. Vancomycin trough is drawn before the 4th dose on 07/01/20 @ 2130. Vancomycin goal trough is between 15-20 mcg/ml. Pharmacy will follow and or advise on antibiotics use as needed.
--- NOTE | 2020-06-30 15:42 | NUR ---
PT RESTING QUIETLY ON STRETCHER, NO COMPLAINT AT THIS TIME. DENIES ANY CHEST PAIN, IS ALERT/ORIENTED AT THIS TIME. DENIES BEING THIRSTY OR HUNGARY. ASKED IF ANYTHING WAS GOING ON WITH HOSPICE NOW, HAD WE HEARD ANYTHING, STATED TO PT THAT CASE MANAGEMENT WAS WORKING ON IT. PT VOICES UNDERSTANDING.
--- NOTE | 2020-06-30 18:50 | NUR ---
REPORT FROM JOSE PATEL. ASSUMED PT CARE.
--- NOTE | 2020-06-30 20:02 | NUR ---
PT RESTING IN BED WITH EYES CLOSED. NO APPARENT DISTRESS NOTED. PT WAKES EASILY. ALERT AND ORIENTED. MONITORS IN PLACE. DISCUSSED POC. PT VERBALIZED UNDERSTANDING. VAPOTHERM IN PLACE. AIR MATTRESS FUNCTIONING PROPERLY. CALL LIGHT WITHIN REACH. WILL CONTINUE TO MONITOR.
--- NOTE | 2020-06-30 21:50 | NUR ---
PT MEDICATED ORDERED. MEDICATED FOR BACK PAIN WITH PRN OXYCONTIN. NO APPARENT DISYRESS NOTED. VAPOTHERM @ 40L AND 100% FIO2 IN PLACE. MONITORS IN PLACE. DENIES ANY OTHER CURRENT WANTS OR NEEDS. CALL LIGHT WITHIN REACH. WILL CONTINUE TO MONITOR.
--- NOTE | 2020-06-30 23:39 | NUR ---
PT RESTING IN BED WITH EYES CLOSED. NO APPARENT DISTRESS NOTED. VAPOTHERM @ 40L AT 100 FIO2. PT DENIES ANY PAIN OR DISCOMFORT. EMPTIED 150ML FROM URINAL. CALL LIGHT WITHIN REACH. WILL CONTINUE TO MONITOR.
[2020-07-01] VITALS (13 sets, daily range): BP systolic 92–132; BP diastolic 42–69
--- NOTE | 2020-07-01 01:10 | NUR ---
PT SPILLED URINAL IN BED. COMPLETE LINEN CHANGE, ONLY ALLOWED STAFF TO GIVE PERICARE NO BATH AT THIS TIME DUE TO SOB. REPOSITIONED IN BED. CALL LIGHT WITHIN REACH. VAPOTHERM IN PLACE SETTINGS UNCHANGED. WILL CONTINUE TO MONITOR.
--- NOTE | 2020-07-01 01:51 | NUR ---
PT SITTING UP IN BED. EXTREMELY SOB, YELLING OUT "I CAN'T BREATHE". 02 SATS LOW 80S. RESPIRATIONS SHALLOW AND RAPID. ENCOURAGED PT TO DEEP BREATH, HOB ELEVATED AND PT REPOSITIONED IN BED. PT SOUNDS WET. GENERALIZED EDEMA NOTED. IV FLUIDS STOPPED AT THIS TIME. TRUCK DRIVER FLATBED PHYSICIAN NOTIFIED. ORDERS RECEIVED FOR CXR AND IV LASIX. WILL MEDICATE AND CONTINUE TO MONITOR.
--- NOTE | 2020-07-01 02:25 | NUR ---
RADIOLOGY AT BEDSIDE TO OBTAIN CXR.
--- NOTE | 2020-07-01 02:43 | NUR ---
CONDOM CATH APPLIED AT THIS TIME.
--- NOTE | 2020-07-01 02:49 | NUR ---
PT SATS REMAIN 79-82%. VAPOTHERM IN PLACE. RT AT BEDSIDE. NONREBREATHER PLACED OVER VAPOTHERM SAT UP TO 92% AT THIS TIME. ENCOURAGED PT TO LIMIT ACTIVITY AND RELAXATION TECHNIQUES. CONDOM CATH IN PLACE. CALL LIGHT WITHIN REACH. WILL CONTINUE TO MONITOR.
--- NOTE | 2020-07-01 04:01 | NUR ---
PT RESTING IN BED. NO APPARENT DISTRESS NOTED. VAPOTHERM AND NON REBREATHER MASK IN PLACE. 02 SAT 92%. CALL LIGHT WITHIN REACH. WILL CONTINUE TO MONITOR.
--- NOTE | 2020-07-01 05:39 | NUR ---
NEW IV SITE STARTED X2 ATTEMPTS. #22 RFA. PT TOLERATED WELL. IV ABT INTITIATED. CONDOM CATH INTACT, NO APPARENT LEAKS, 400ML EMPTIED FROM COLLECTION BAG. 02 SATS 99%. PT RESTING COMFORTABLY. CALL LIGHT WITHIN REACH. WILL CONTINUE TO MONITOR.
--- NOTE | 2020-07-01 07:05 | NUR ---
REPORT RECEIVED FROM MARY MCGILL. PT RESTING IN BED ON LEFT SIDE WITH EYES CLOSED; AWAKENS TO VERBAL STIMULI. ALERT AND ORIENTED TO PERSON ONLY; ANSWERS ALL QUESTIONS APPROPRIATELY AND LAUGHS AT THE FACT THE HE DOES NOT KNOW THE YEAR. DENIES PAIN. RESPIRATIONS EVEN AND UNLABORED AT REST ON VAPOTHERM 40L 100%; SPO2 91-93%. LUNGS ARE COURSE; SKIN PALE; 3+ PEDAL EDEMA TO REDNESS TO HEELS; OFFLOADED WITH PILLOWS. CONDOM CATHETER IN PLACE; URINE LEAKED ONTO BED WILL CHART UNMEASUREABLE VOID. POC REVIEWED; PT ENCOURAGED TO VERBALIZE CONCERNS. STATES UNDERSTANDING. SAFETY MEASURES IN PLACE. CALL LIGHT WITHIN REACH.
--- NOTE | 2020-07-01 07:46 | NUR ---
DR. IRWIN AT BEDSIDE FOR EVAL.
--- NOTE | 2020-07-01 08:30 | NUR ---
SPEECH THERAPY AT BEDSIDE FOR EVAL.
--- NOTE | 2020-07-01 09:36 | NUR ---
FRIEND ELEANOR CALLED FOR UPDATE; QUESTIONS ANSWERED TO SATISFACTION.
--- NOTE | 2020-07-01 09:50 | NUR ---
CASE MANAGEMENT SPEAKING WITH DAUGHTER, MONSTER, ABOUT PLAN OF CARE. DAUGHTER TO FLY IN TOMORROW AND COME TO BEDSIDE.
--- NOTE | 2020-07-01 10:08 | NUR ---
CONDOM CATHETER INEFFECTIVE; REMOVED AND PERICARE PERFORMED. BRIEF APPLIED. MODERATE BLANCHABLE REDNESS TO COCCYX; BONY PROMINENCE AT THAT AREA; DUODERM APPLIED AND PT INSTRUCTED TO REPOSITION SIDE TO SIDE.
--- NOTE | 2020-07-01 12:00 | NUR ---
IV FLUIDS INFUSING WITHOUT DIFFICULTY; IV SITE APPEARS HEALTHY. PT INCONTINENT OF URINE IN BRIEF; HYGIENE PROVIDED. VSS. AFIB ON SOIL TESTER; HEART RATE 90S-110.
--- NOTE | 2020-07-01 14:04 | NUR ---
PT UPDATED THAT DAUGHTER WILL BE AT BEDSIDE TOMORROW ALONG WITH HOSPICE NURSE; STATES UNDERSTANDING. REMAINS ON VAPOTHERM 100% 40L; SPO2 DOES DECREASE TO 88-89 WITH ACTIVITY.
--- NOTE | 2020-07-01 15:52 | NUR ---
HOSPICE NURSE AT BEDSIDE. MORPHINE GIVEN FOR C/O 10/10 PAIN TO LEGS AND BACK; FACE SCALE OF 0. PT ENCOURAGED TO VERBALIZE WHEN HE IS HAVING PAIN. ICE CHIPS PROVIDED PER REQUEST. PT RESTING ON RIGHT SIDE.
--- NOTE | 2020-07-01 19:45 | NUR ---
drowsy when awakened. nad. o2 cont per vapotherm. coarse breath sounds bilat. monitoring engineer shows sinus rhythm pacs pvcs ivcd hr 67. #22 rfa d5ns infusing @ 50cchr. ref po intake. diaper changed. requires total care for all needs. air mattress & fall precautions cont.
--- NOTE | 2020-07-01 21:15 | NUR ---
lab here. blood drawn.
--- NOTE | 2020-07-01 22:00 | NUR ---
eyes closed. no distress. cardiac rn shows sinus rhythm pacs pvcs ivcd hr 80
[2020-07-02] VITALS (9 sets, daily range): BP systolic 115–146; BP diastolic 60–81
--- NOTE | 2020-07-02 00:01 | NUR ---
eyes closed. nad. ivf infusing well.
--- NOTE | 2020-07-02 02:00 | NUR ---
resting quietly. resps even & unlabored. no apparent distress. winchman/crane operator shows sinus rhythm pacs pvcs hr 80
--- NOTE | 2020-07-02 05:12 | NUR ---
lab here. blood drawn.
[2020-07-02 06:10] LABS: ALBUMIN 1.8 g/dL (3.2-5.0); ALKALINE PHOSPHATASE 65 u/l (38-126); BILIRUBIN, TOTAL 1.2 mg/dL (0.0-1.4); BUN 23 mg/dL (8-23); BUN/CREATININE RATIO 34 (12-20 (CALC)); CARBON DIOXIDE 24 mmol/l (22-30); CHLORIDE 116 mmol/l (95-108); CREATININE 0.7 mg/dL (0.7-1.3); GFR > 60 ML/MIN (>=60 (CALC)); GFR FOR AFR.AMER. > 60 ML/MIN (>=60 (CALC)); SGOT/AST 15 u/l (19-48); SODIUM 145 mmol/l (137-146); TOTAL PROTEIN 4.1 g/dL (6.3-8.2)
[2020-07-02 06:16] LABS: HEMATOCRIT 31.1 % (39.0-50.0); HEMOGLOBIN 9.5 g/dl (14.0-18.0); MEAN CELL VOLUME 88.9 fL CALC (80.0-100.0); MEAN CORPUSCULAR HGB 27.1 pG CALC (26.0-32.0); MEAN CORPUSCULAR HGB CONC 30.5 g/dL CAL (32.0-36.0); RED BLOOD COUNT 3.5 mill/uL (4.70-6.10); RED CELL DISTRI WIDTH 18.6 % (11.5-15.5)
[2020-07-02 06:30] LABS: ANION GAP 8 (6-22 (CALC)); POTASSIUM 2.8 mmol/l (3.5-5.1)
--- NOTE | 2020-07-02 07:05 | NUR ---
REPORT RECEIVED FROM MARY SALEH. PT RESTING IN BED SEMI FOWLERS; ALERT AND ORIENTED TO PERSON; TALKATIVE AND AND ORIENTED OTHERWISE. DENIES PAIN CURRENTLY. RESPIRATIONS EVEN AND SLIGHTLY LABORED ON VAPOTHERM 40L 100% FOI2; PT DOES HAVE C/O MILD SOB. LUNGS ARE COURSE; THICK YELLOW/BROWN SPUTUM COLLECTED AND SENT TO LAB. 3+ PEDAL EDEMA CONTINUES. POC REVIEWED INCLUDING DAUGHTERS APPROVED VISITATOIN THIS AFTERNOON AND POSSIBLE MEETING WITH HOSPICE NURSE. PT ENCOURAGED TO VERBALIZE CONCERNS. STATES UNDERSTANDING. SAFETY MEASURES IN PLACE. CALL LIGHT WITHIN REACH.
--- NOTE | 2020-07-02 08:30 | NUR ---
DR. IRWIN AT BEDSIDE; NEW ORDERS RECEIVED.
--- NOTE | 2020-07-02 09:12 | NUR ---
SPOKE WITH DANNI FROM [facility]. SHE WILL SEND A HOSPICE NURSE AFTER DAUGHTER AND DISCUSSED WITH PT AND AGREED TO RECEIVE HOSPICE CARE.
--- NOTE | 2020-07-02 11:01 | NUR ---
RT AT BEDSIDE TO PERFORM CPT.
--- NOTE | 2020-07-02 11:11 | NUR ---
S: AMIE CROWELL is a 75 M who presents with pneumonia and COPD exacerbation. He has a history of arthritis and COPD. All medications in patient's chart were reviewed. O: Vancomycin trough of 10 mcg/mL on 07/01/20 at 2130. VS: BP 121/61 mm/Hg, P 70 bpm, RR 24 breaths/min, T 96.9 F W 52 kg, HT 73 inches, Scr= 0.7 mg/dL, CrCl= 46.9 ml/min A: Blood culture shows S. hominis in 1 of 4 tubes. Most likely contaminant. P: Patient is on cefepime 1 g IV Q12H. Vancomycin ordered for pharmacy to dose. Change to Vancomycin 1g IV Q12H. Vancomycin trough is drawn before the 4th dose on 07/04/20 at 0930. Vancomycin goal trough is between 15-20 mcg/ml. Pharmacy will follow and or advise on antibiotics use as needed.
--- NOTE | 2020-07-02 11:51 | NUR ---
ATTEMPTED CPT BUT PT BECAME ANGRY AND AGITATED AND DID NOT TOLERATE.
--- NOTE | 2020-07-02 12:06 | NUR ---
ST AT BEDSIDE. PT CONTINUES WITH NPO DIET WITH ICE CHIPS.
--- NOTE | 2020-07-02 13:59 | NUR ---
Patient received semi-upright in bed. Patient on HiFlow nasal cannula. Oxygen saturaions between 87-92%. Patient reports he is having a "hard time breathing." Patient with viscious breathing. He reports he would enjoy something to drink; however, is currently NPO d/t high oxygen demands. Per discussion with patient's RN, patient's daughter and medical team to discuss hospice care later today. RN reports patient has been having ice-chips periodically throughout the day. Clinician provided patient with moist toothettes and instructed the patient to not attempt to extract liquids from the toothette to moisten patient's oral cavity. Patient provided with verbal education from this clinician regarding on-going NPO recommendations given his current respiratory status. Will f/u tomorrow with medical team to determine goals of care. Pt asked THEATRE PROFESSOR appropriate questions regarding goals of care, including his ability to eat and drink if he/family decide to pursue hospice.
--- NOTE | 2020-07-02 15:15 | NUR ---
PT CONTINUES TO DENY PAIN AND REPORTS BEING COLD AND ASKING FOR WARM BLANKET. DECLINES OFFER FOR PAIN MEDICATION. REPOSITIONED HIGHER IN BED.
--- NOTE | 2020-07-02 15:32 | NUR ---
DAUGHTER AT BEDSIDE.
--- NOTE | 2020-07-02 17:43 | NUR ---
PLACED CALL LIGHT WITH URGE TO VOID; ATTEMPTED TO USE URINAL AND PT BECOMES FRUSTRATED WITH USE OF URINAL AND INCONTINENCE INCLUDING BEING UNCOVERED FOR PERICARE AFTER URINARY INCONTINENCE, ETC. REQUESTS KERR CATHETER FOR COMFORT; NEW ORDER RECEIVED FOR KERR. 16F KERR PLACED AT THIS TIME WITH IMMEDIATE RETURN OF 300ML CLEAR DARK YELLOW URINE. PT SATISFIED; NO OTHER NEEDS AT THIS TIME.
--- NOTE | 2020-07-02 19:40 | NUR ---
drowsy when awakened then speaks of daughter & stepdaughter coming from [place]. o2 cont per 40 liters 100% vapotherm. coarse breath sounds bilat. captain waiter shows sinus rhythm ivcd pacs pvcs hr 77. #22 rfa d5ns infusing @ 50cchr. refused ice chips. vanessa cath in place. urine yellow. requires total care for all needs. fall precautions & air mattress conts.
--- NOTE | 2020-07-02 22:00 | NUR ---
eyes closed. no distress. equipment monitor phototypesetting shows sinus rhythm pacs pvcs ivcd hr 70.
[2020-07-03] VITALS (12 sets, daily range): BP systolic 103–140; BP diastolic 50–73
--- NOTE | 2020-07-03 00:01 | NUR ---
awake. watched tv for short while. no distress
--- NOTE | 2020-07-03 02:00 | NUR ---
resting quietly. resps even & unlabored. nad. o2 cont per vapotherm.
--- NOTE | 2020-07-03 04:00 | NUR ---
eyes closed. no distress. vanessa draining well. groundwater monitoring technician shows sinus rhythm pacs pvcs ivcd hr 66.
--- NOTE | 2020-07-03 06:00 | NUR ---
awake. watching tv. nad. o2 cont. alarm security or surveillance monitor shows sinus rhythm pacs pvcs ivcd hr 76.
[2020-07-03 06:45] LABS: HEMATOCRIT 30.1 % (39.0-50.0); HEMOGLOBIN 9.4 g/dl (14.0-18.0); MEAN CELL VOLUME 87.8 fL CALC (80.0-100.0); MEAN CORPUSCULAR HGB 27.4 pG CALC (26.0-32.0); MEAN CORPUSCULAR HGB CONC 31.2 g/dL CAL (32.0-36.0); RED BLOOD COUNT 3.43 mill/uL (4.70-6.10); RED CELL DISTRI WIDTH 18.8 % (11.5-15.5)
--- NOTE | 2020-07-03 07:00 | NUR ---
REPORT RECEIVED FROM MARY SALEH. PT RESTING ON AIRMATTRESS SEMI FOWLERS; ALERT AND ORIENTED TO PERSON ONLY; CAN BE FORGETFUL. USING CALL LIGHT TO REQUEST A PAIR OF SCISSORS SO HE CAN CUT HIS KERR CATHETER OFF ABOUT AN INCH FROM INSERTION SITE INTO URINARY MEATUS; PT EDUCATED ON KERR CATHETER AND HOW TO REMOVE CORRECTLY IF THAT IS HIS WISH; REMINDED OF WHY HE REQUESTED KERR YESTERDAY; PT NOW AGREES TO KEEP KERR IN PLACE. STATES THAT HE ATTEMPTED TO PULL IT OUT HIMSELF, BUT IT WOULD NOT EASILY PULL OUT. DENIES PAIN CURRENTLY, BUT DOES REPORT SCIATICA PAIN DURING MOVEMENT. RESPIRATIONS SLIGHTLY LABORED ON VAPOTHERM 40L 100% FIO2 AND PT C/O MILD SOB. LUNGS ARE COURSE. KERR DRAINING CLEAR SHERLYN URINE. IV FLUIDS INFUSING WITHOUT DIFFICULTY; IV SITE APPEARS HEATLHY. SAFETY MEASURES IN PLACE. CALL LIGHT WITHIN REACH.
[2020-07-03 07:01] LABS: ALBUMIN 1.8 g/dL (3.2-5.0); ALKALINE PHOSPHATASE 52 u/l (38-126); ANION GAP 6 (6-22 (CALC)); BILIRUBIN, TOTAL 1.2 mg/dL (0.0-1.4); BUN 25 mg/dL (8-23); BUN/CREATININE RATIO 43 (12-20 (CALC)); CARBON DIOXIDE 24 mmol/l (22-30); CHLORIDE 120 mmol/l (95-108); CREATININE 0.6 mg/dL (0.7-1.3); GFR > 60 ML/MIN (>=60 (CALC)); GFR FOR AFR.AMER. > 60 ML/MIN (>=60 (CALC)); POTASSIUM 3.3 mmol/l (3.5-5.1); SGOT/AST 16 u/l (19-48); SODIUM 147 mmol/l (137-146); TOTAL PROTEIN 4.1 g/dL (6.3-8.2)
--- NOTE | 2020-07-03 08:45 | NUR ---
DR. IRWIN AT BEDSIDE FOR EVAL.
--- NOTE | 2020-07-03 09:00 | NUR ---
RT AT BEDSIDE FOR BREATHING TREATMENT.
--- NOTE | 2020-07-03 09:14 | NUR ---
DAUGHTER AT BEDSIDE.
--- NOTE | 2020-07-03 09:25 | NUR ---
DR. IRWIN AT BEDSIDE DISCUSSING POC WITH FAMILY.
--- NOTE | 2020-07-03 11:05 | NUR ---
MORPHINE GIVEN FOR DISCOMFORT AND PT TRANSFERRED INTO BEDSIDE WITH ONE PERSON ASSIST; REMAINS ON VAPOTHERM AT MAX SETTINGS. LINENS CHANGED. PT FREQUENTLY REQUESTING ORANGE JUICE; SPEECH THERPAY AT BEDSIDE THIS MORNING ATTEMPTING THICKEND FLUIDS, BUT STILL HAS CONCERNS WITH HYPOXIA DURING PO INTAKE AND PT DIET REMAINS NPO WITH ICE CHIPS.
--- NOTE | 2020-07-03 12:20 | NUR ---
IV SITE LEAKING WITH SOME SURROUNDING REDNESS; ATTMEPTED TO RESTART IV X 2. 2 OTHER NURSES ATTEMPT IV ACSESS WITH NO SUCCESS. MD NOTIFIED OF NO IV ACCESS AND DECREASEDS SPO2 WITH VAPOTHERM ON.
--- NOTE | 2020-07-03 13:45 | NUR ---
POSITIONED BACK INTO BED ON RIGHT SIDE; DUODERM REMOVED FROM COCCYX; SEVERE BLANCHABLE REDNESS NOTED WITH EXCORIATION SURROUNDING AREA. BARRIER CREAM APPLIED AND PT ENCOURGED TO REMAIN ON RIGHT SIDE; POSITIONED WITH PILLOWS. PHOTO TAKEN AND PLACED IN CHART.
--- NOTE | 2020-07-03 14:05 | NUR ---
NON REBREATHER MASK PLACED OVER VAPOTHERM TO SUSTAIN SPO2 GREATER THAN 92% DURING REST. PT REMAINS RESTING ON RIGHT SIDE WITH HOB ELEVATED 30 DEGREES.
--- NOTE | 2020-07-03 14:26 | NUR ---
PT ENCOURAGED TO MAKE A DEFINITIVE DECISION REGARDING HIS PLAN OF CARE DUE TO LACK OF IV ACCESS AND HYPOXIA. DISCUSSED IN LENGTH THIS AM WITH DR. IRWIN AND FAMILY AT BEDSIDE, BUT PT HESITANT TO CHOOSE PLAN AND ALSO CHANGES HIS MIND; DAUGHTERS WANT TO FOLLOW PATIENT WISHES. PLAN OF CARE INCLUDING AGGRESSIVE TREATMENT AND PLAN OF CARE INCLUDING COMFORT CARE BOTH EXPLAINED IN DETAIL AND PT STATES, "I'VE NEVER GIVEN UP BEFORE IN MY LIFE." PT AGRESS TO BIPAP MASK EVEN WHEN WE EXPLAINED HE COULD NOT HAVE ANYTHING BY MOUTH AND AGREES TO CENTRAL LINE PLACEMENT. STATES HE WANTS EVERYTHING DONE TO AVOID INTUBATION, BUT WANTS TO REMAIN A DNR AND DOES NOT WANT TO BE INTUBATED. DAUGHTER, MONSTER, CALLED AND NOTIFIED OF PATIENT'S DECISIONS.
--- NOTE | 2020-07-03 15:05 | NUR ---
RT AT BEDSIDE TO APPLY BIPAP. PT AGREES AND IS TOLERATING WELL.
--- NOTE | 2020-07-03 15:23 | NUR ---
Patient received laying semi-upright with his daughter and stepdaughter present. He is still receiving HiFlow nasal cannula oxygen at 40L 100%. His O2 saturation levels remain between 85-93%. He reported feeling better, however he is still SOB during speech and was receiving additional O2 support via mask. Pt remains NPO based on AIR LIAISON AND SPECIAL STAFF recommendations. During morning meeting with Dr. Duffy, he allowed the pt to drink thin orange juice via straw. Following this meeting the nruse reported repeated requests for orange juice from the pt and his daughters. AIR LIAISON AND SPECIAL STAFF recommended against all thin liquids d/t continued need for high oxygen demands and impaired ability to coordinate respiration and swallowing and provided detailed education to the family about the importance of reducing aspiration. Dr. Duffy was consulted for pt POC and AIR LIAISON AND SPECIAL STAFF involvement, and he stated allowing comfort liquids at pt request and continued support and monitoring from the ST team. Following consultation with Dr. Duffy, the AIR LIAISON AND SPECIAL STAFF returned to discuss options with the pt. He was still receiving Nasal cannula O2 with mask support. His daughters were no longer present, but the AIR LIAISON AND SPECIAL STAFF received verbal confirmation to discuss POC with them. The AIR LIAISON AND SPECIAL STAFF discussed deciding between comfort feeds or remaining NPO for potentional recovery and the potentional need for a feeding tube placement. During pt visit, Feng's nurse entered the room to discuss new physician orders for bpap and central line. Pt agreed to the new orders and also agreed to remain NPO. As the AIR LIAISON AND SPECIAL STAFF exited the room, the pt asked if he could have a cigarette.
--- NOTE | 2020-07-03 15:25 | NUR ---
VAPOTHERM STANDBY. PLACED ON BIPAP.
--- NOTE | 2020-07-03 15:40 | NUR ---
DR. ESCAMILLA AT BEDSIDE FOR CENTRAL LINE PLACMENT; PT NOW HAS RIGHT FEMORAL TRIPLE LUMEN CENTRAL LINE. IV FLUIDS AND MEDICATIONS RESUMED.
--- NOTE | 2020-07-03 16:30 | NUR ---
PT REMOVED BIPAP MASK TWICE AND REQUESTING JUICE TO DRINK; REMINDED AND EXPLAINED AGAIN THE CONDITION OF HIS HYPOXIA AND HIS DECISION FOR BIPAP. STATES THAT HE WANTS TO GO HOME REGARDLESS OF HIS NEED FOR OXYGEN. PT EXPLAINED THAT COMFORT AND HOSPICE HAVE BEEN AN OPTION FOR HIM AND ALL OPTIONS EXPLAINED IN DETAIL TO HIM AND TO HIS FAMILY; OPTION FOR COMFORT CARE AND HOSPICE AGAIN EXPLAINED AND PT AGREES THAT THAT IS WHAT HE WANTS. PLACED ON VAPOTHERM AT THIS TIME. DR. IRWIN NOTIFIED. DANNI FROM [facility] NOTIFIED; SHE WILL HAVE HOSPICE NURSE CONSULT TOMORROW MORNING WHILE DAUGHTERS ARE AT BEDSIDE.
--- NOTE | 2020-07-03 16:49 | NUR ---
PT. REFUSES TO CONTINUE TO WEAR BIPAP. PLACED STANDBY AND PLACED ON VAPOTHERM.
--- NOTE | 2020-07-03 17:15 | NUR ---
VSS; AFEBFILE. 400ML OF ORANGE URINE EMPTIED FROM KERR. SAFETY MEASURES IN PLACE.
--- NOTE | 2020-07-03 18:45 | NUR ---
CENTRAL LINE DRESSING TO RIGHT GROIN WITH BLOODY DRAINAGE DUE TO HIGH RISK OF BLEEDING; NO ACTIVE BLEEDING AT THIS TIME. PT IS IN STABLE CONDITION.
--- NOTE | 2020-07-03 19:00 | NUR ---
REPORT RECEIVED FROM Meng WIN RN, CARE OF PT ASSUMED AT THIS TIME.
--- NOTE | 2020-07-03 20:25 | NUR ---
PT LAYING IN BED ON HIS SIDE, EYES CLOSED, RESPIRATIONS REGULAR AND UNLABORED, APPEARS TO BE SLEEPING COMFORTABLY. WAKES EASILY TO VERBAL STIMULI. PHYSICAL ASSESMENT COMPLETE. LUNG SOUNDS COARSE, RESPIRATIONS REGULAR AND UNLABORED, SP02 93% ON VAPOTHERM 40L/MIN 100% FIO2. KERR CATHETER SECURED, UNKINKED, UNOBSTRUCTED, DRAINING TO BAG GRAVITY WITH CLEAR YELLOW URINARY OUTPUT. R-GROIN TLC PATENT, INFUSING D5NS @50ml/h, SOME BLOOD NOTED UNDER CLEAR DRESSING, NO ACTIVE BLEEDING NOTED. +2 PITTING EDEMA TO BLE. PLAN OF CARE REVIEWED PT SEEMS DISINTERESTED AT THIS TIME, STATES "HE'S TIRED AND PULLS BLANKET OVER HIS HEAD. DENIES NEEDS AT THIS TIME. CALL HICKS WITHIN REACH, AGREES TO CALL PRN.
[2020-07-04] VITALS (8 sets, daily range): BP systolic 113–150; BP diastolic 54–87
--- NOTE | 2020-07-04 | NUR ---
PT APPEARS TO BE SLEEPING COMFORTABLY, LAYING IN BED, EYES CLOSED, RESPIRATIONS REGULAR AND UNLABORED. NO APPARENT DISTRESS. CALL HICKS REMAINS WITHIN REACH.
--- NOTE | 2020-07-04 03:00 | NUR ---
PT APPEARS TO BE SLEEPING COMFORTABLY, LAYING IN BED, EYES CLOSED, RESPIRATIONS REGULAR AND UNLABORED. NO APPARENT DISTRESS. CALL HICKS REMAINS WITHIN REACH.
--- NOTE | 2020-07-04 05:40 | NUR ---
AM LABS DRAWN FROM R-FEMORAL TLC BY Erlin JARAMILLO RN
[2020-07-04 05:57] LABS: HEMATOCRIT 25.6 % (39.0-50.0); HEMOGLOBIN 7.9 g/dl (14.0-18.0); MEAN CELL VOLUME 89.5 fL CALC (80.0-100.0); MEAN CORPUSCULAR HGB 27.6 pG CALC (26.0-32.0); MEAN CORPUSCULAR HGB CONC 30.9 g/dL CAL (32.0-36.0); RED BLOOD COUNT 2.86 mill/uL (4.70-6.10); RED CELL DISTRI WIDTH 18.7 % (11.5-15.5)
[2020-07-04 06:29] LABS: ALBUMIN 1.8 g/dL (3.2-5.0); ALKALINE PHOSPHATASE 67 u/l (38-126); ANION GAP 7 (6-22 (CALC)); BILIRUBIN, TOTAL 1.1 mg/dL (0.0-1.4); BUN 23 mg/dL (8-23); BUN/CREATININE RATIO 42 (12-20 (CALC)); CARBON DIOXIDE 25 mmol/l (22-30); CHLORIDE 120 mmol/l (95-108); CREATININE 0.6 mg/dL (0.7-1.3); GFR > 60 ML/MIN (>=60 (CALC)); GFR FOR AFR.AMER. > 60 ML/MIN (>=60 (CALC)); POTASSIUM 2.9 mmol/l (3.5-5.1); SGOT/AST 16 u/l (19-48); SODIUM 148 mmol/l (137-146)
--- NOTE | 2020-07-04 06:45 | NUR ---
REPORT RECEIVED FROM DAWNA PATEL. CARE ASSUMED.
--- NOTE | 2020-07-04 07:15 | NUR ---
PT SITTING UP IN BED AWAKE AT THIS TIME. PT IS ALERT AND ORIENTED X3. SHIFT ASSESSMENT COMPLETED AT THIS TIME. IV PATENT X1. PT REQUESTING ORANGE JUICE. EXPLAINED THAT HE IS ONLY ABLE TO HAVE ICE CHIPS AT THIS TIME. GAVE ICE CHIPS DRIZZLED IN ORANGE JUICE. PT APPRECIATIVE. CALL LGT IN REACH. WILL CONTINUE TO MONITOR.
--- NOTE | 2020-07-04 08:00 | NUR ---
DR IRWIN AT BEDSIDE AT THIS TIME.
--- NOTE | 2020-07-04 09:29 | NUR ---
DAUGHTERS X2 AT BEDSIDE WITH CASE MANAGEMENT
--- NOTE | 2020-07-04 09:52 | NUR ---
PT HAD A BM INCONTINENET. PT CLEANSED. LINENS CHANGED. STOOL SAMPLE COLLECTED.
--- NOTE | 2020-07-04 10:20 | NUR ---
Spoke with patient's RN, Veronique Hodge, case management, hospice, patient, and patient's family currently meeting to discuss plan of care. Will f/u with outcome of meeting later today to determine SAT INSTRUCTOR role in plan of care.
--- NOTE | 2020-07-04 10:30 | NUR ---
HOSPICE NURSE PRABHAKAR WITH FAMILY AND PATIENT DISCUSSING PLAN OF CARE. EVERYONE AGREES THAT HOSPICE HOUSE WOULD BE BEST. COVID PCR OBTAINED AND SENT TO LAB FOR REFERENCE PER HOSPICE REQUEST. PT MEDICATED WITH MORPHINE 4MG FOR PAIN PER AUG.
--- NOTE | 2020-07-04 12:38 | NUR ---
FAMILY HAS LEFT BEDSIDE AT THIS TIME. PT IS RESTING. VSS ON MONITOR. RESP ARE EVEN AND UNLABORED. NO DISTRESS NOTED. CALL LIGHT IN REACH. WILL CONTINUE TO MONITOR.
--- NOTE | 2020-07-04 14:28 | NUR ---
PT RESTING IN BED WITH EYES CLOSED. RESP ARE EVEN AND UNLABORED. NO DISTRESS NOTED. VSS ON MONITOR. CALL LIGHT IN REACH. WILL CONTINUE TO MONITOR.
--- NOTE | 2020-07-04 15:29 | NUR ---
Pt now Hospice care with plan to d/c to hospice house. DISPATCHER CLERK to sign off at this time.
--- NOTE | 2020-07-04 15:52 | NUR ---
PT RESTING IN BED AWAKE. PT AWAITNG TRANSPORT TO HOSPICE HOUSE. PT IS AWARE THAT IT WILL BE IN EVENING. CALL LIGHT IN REACH. [facility].
--- NOTE | 2020-07-04 16:20 | NUR ---
PT REPORT RECEIVED FROM GAGE PATEL FOR CONTINUATION OF CARE. WALKED INTO ROOM AND PT HAD PULLED OFF OXYGEN AND MONITER LEADS, STATES HE DOESNT WANT THEM ON ANYMORE. STATES HE IS READY TO GO HOME. INFORMED PT THAT HE WOULD BE LEAVING IN A COUPLE OF HOURS.
--- NOTE | 2020-07-04 17:20 | NUR ---
PT CONTINUES TO PULL OFF OXYGEN AND MONITER LEADS SOON STAFF LEAVES THE ROOM AFTER PUTTING THEM BACK ON, HE STATES HE JUST WANTS TO GET OUT OF HERE.
--- NOTE | 2020-07-04 19:00 | NUR ---
REPORT RECEIVED FROM Erlin BUNDY RN, CARE OF PT ASSUMED AT THIS TIME.
--- NOTE | 2020-07-04 19:34 | NUR ---
RIGHT FEMORAL TLC DISCONTINUED.SUTURES REMOVED. CATHETER INTACT. BULKY PRESSURE DRESSING APPLIED. PRESSURE HELD X5 MINUTES. NO SIGN OF BLEEDING THROUGH DRESSING.
--- NOTE | 2020-07-04 20:31 | NUR ---
PT DISCHARGED, LEFT VIA STRETCHER WITH 02, ACCOMPANIED BY TRANSPORT FER FROM [facility].
== END 2020-07-04 20:30 | disposition other institution (70) | DRG 193 ==
LOC: ED 10:17 → ED-I 14:39 → ED 14:50 → ICU 14:51
PROVIDERS: Internal Medicine; Nurse Practitioner; Student in an Organized Health Care Education/Training Program; ADMIT Internal Medicine; ATTEND Internal Medicine
PROC: 06HY33Z Insertion of Infusion Device into Lower Vein, Percutaneous Approach (ICD-10-PCS; principal; 2020-06-27)
PROC: 30233N1 Transfusion of Nonautologous Red Blood Cells into Peripheral Vein, Percutaneous Approach (ICD-10-PCS; 2020-06-28)
PROC: 5A09357 Assistance with Respiratory Ventilation, Less than 24 Consecutive Hours, Continuous Positive Airway Pressure (ICD-10-PCS; 2020-07-03)
DX: J18.9 Pneumonia, unspecified organism (principal); J96.01 Acute respiratory failure with hypoxia; C34.92 Malignant neoplasm of unspecified part of left bronchus or lung; E46 Unspecified protein-calorie malnutrition; R64 Cachexia; Z68.1 Body mass index [BMI] 19.9 or less, adult; J43.9 Emphysema, unspecified; Z66 Do not resuscitate; Z51.5 Encounter for palliative care; I48.91 Unspecified atrial fibrillation; D64.9 Anemia, unspecified; D75.82 Heparin induced thrombocytopenia (HIT); R60.9 Edema, unspecified; R62.7 Adult failure to thrive; M54.30 Sciatica, unspecified side; F17.210 Nicotine dependence, cigarettes, uncomplicated; Z20.822 Contact with and (suspected) exposure to COVID-19; Z79.891 Long term (current) use of opiate analgesic; Z79.899 Other long term (current) drug therapy; Z88.8 Allergy status to other drugs, medicaments and biological substances; Z91.011 Allergy to milk products
CPT/HCPCS: J0282; J0692; J1160; J1650; J3370; P9016; Q9967